=== PATIENT | female | born 1985 | race Hispanic/Latino ===

== ENCOUNTER 2024-06-05 13:20 | Day surgery (SDC) | payer OTHER ==
[2024-06-05 13:48] VITALS: BMI 24.7
[2024-06-05] MEDS ORDERED: hydrALAZINE 20 MG/ML VIAL SLOW IVP PRN (14:14)
[2024-06-05] MEDS: Lactated Ringer's 1,000 ML IV SCH (14:45)
[2024-06-05 15:40] LABS: #Basophils 0.03 10x3/uL (0.0-0.2); #Eosinophils 0.04 10x3/uL (0.0-0.5); #Neutrophils 7.89 10x3/uL (1.5-8.4); %Basophils 0.3 % (0.0-2.0); %Eosinophils 0.4 % (0.0-6.0); %Lymphocytes 14.2 % (18.0-47.0); %Neutrophils 78.3 % (40.0-75.0); Hematocrit 39.5 % (34.9-44.5); Hemoglobin 13.2 g/dL (12.0-15.5); Mean Corpuscular HGB CONC 33.4 g/dL (32.0-36.0); Mean Corpuscular Hemoglobin 28.9 pg (27.0-33.0); Mean Corpuscular Volume 86.6 fL (81.6-98.3); Mean Platelet Volume 9.6 fL (7.4-10.4); Platelet Count 323 10x3/uL (150-450); RBC Distribution Width 14.4 % (11.5-14.5); Red Blood Cell (RBC) Count 4.56 10x6/uL (3.90-5.03); White Blood Cell (WBC) Count 10.1 10x3/uL (3.5-10.5)
[2024-06-05 16:00] LABS: ALT (SGPT) 30 U/L (8-55); AST (SGOT) 40 U/L (5-34); Albumin 2.7 g/dL (3.5-5.0); Alkaline Phosphatase 106 U/L (40-110); Anion Gap 14 mmol/L (10-20); BUN (Urea Nitrogen) Less than 4 mg/dL (7.0-18.7); Bilirubin, Total 0.3 mg/dL (0.2-1.2); Calc. Creatinine Clearance 170 mL/min (70-130); Calcium 8.9 mg/dL (7.8-10.44); Carbon Dioxide 20 mmol/L (22-29); Chloride 109 mmol/L (98-107); Estimated GFR 121; Globulin 3.5 g/dL (2.4-3.5); Glucose 75 mg/dL (70-105); Protein, Total 6.2 g/dL (6.0-8.3); Sodium 140 mmol/L (136-145)
[2024-06-05 16:06] LABS: Potassium 2.6 mmol/L (3.5-5.1)
[2024-06-05 16:20] LABS: Influenza A by NAA Not Detected (NotDetected); Influenza B by NAA Not Detected (NotDetected); RSV by NAA Not Detected (NotDetected); SARS-CoV-2 NAA Rapid Test Not Detected (NotDetected)
[2024-06-05] MEDS: Potassium Chloride 20 MEQ TAB PO SCH (17:03)
== END 2024-06-05 17:25 | disposition home or self-care (01) ==
LOC: CSHLD/OP 13:20
PROVIDERS: ATTEND Family Medicine
DX: O99.283 Endocrine, nutritional and metabolic diseases complicating pregnancy, third trimester (principal); E87.6 Hypokalemia; O47.03 False labor before 37 completed weeks of gestation, third trimester; O09.43 Supervision of pregnancy with grand multiparity, third trimester; O09.523 Supervision of elderly multigravida, third trimester; Z79.899 Other long term (current) drug therapy; Z79.82 Long term (current) use of aspirin; Z3A.32 32 weeks gestation of pregnancy
CPT/HCPCS: 0241U; 80053; 85025; 96360; 99283

== ENCOUNTER 2024-07-23 05:30 | Inpatient (IN) | payer MEDICAID, OTHER ==
[2024-07-23 05:56] VITALS: BMI 29.2
[2024-07-23] MEDS ORDERED: Misoprostol 200 MCG TAB PR PRN (07:47)
[2024-07-23] MEDS ORDERED: Carboprost 250 MCG/ML AMP IM PRN (07:47)
[2024-07-23] MEDS ORDERED: Lidocaine 1% (PF) 30 ML VIAL SC PRN (07:47)
[2024-07-23] MEDS ORDERED: Methylergonovine 0.2 MG/ML VIAL IM PRN (07:47)
[2024-07-23] MEDS ORDERED: fentaNYL 50 mcg/mL 1 mL Vial SLOW IVP PRN (07:47)
[2024-07-23] MEDS ORDERED: Promethazine HCl 25 MG/ML VIAL IM PRN (07:47)
[2024-07-23] MEDS ORDERED: Ondansetron PF 4 MG/2 ML Vial IVP PRN ×2 (07:47→16:47)
[2024-07-23] MEDS ORDERED: Acetaminophen 500 MG TAB PO PRN (07:47)
[2024-07-23] MEDS ORDERED: Diphenoxylate HCl/Atropine Tablet PO PRN (07:47)
[2024-07-23] MEDS ORDERED: Tranexamic Acid 1,000 MG/10 ML VIAL IVP PRN (07:47)
[2024-07-23] MEDS ORDERED: HYDROcodone/Acetaminophen 5/325 mg Tablet PO PRN ×2 (07:47→16:47)
[2024-07-23] MEDS ORDERED: hydrALAZINE 20 MG/ML VIAL SLOW IVP PRN ×2 (07:47→16:47)
[2024-07-23] MEDS ORDERED: Oxytocin 30 units/NS 500 ML 500 ML IV SCH ×3 (08:00)
[2024-07-23] MEDS ORDERED: Lactated Ringer's 1,000 ML IV SCH (08:00)
[2024-07-23 09:03] LABS: Glucose 74 mg/dL (70-105)
[2024-07-23 09:03] LABS: Hemoglobin 12.6 g/dL (12.0-15.5); Mean Corpuscular HGB CONC 33.2 g/dL (32.0-36.0); Mean Corpuscular Hemoglobin 29.1 pg (27.0-33.0); Mean Corpuscular Volume 87.8 fL (81.6-98.3); Mean Platelet Volume 10.9 fL (7.4-10.4); Platelet Count 264 10x3/uL (150-450); RBC Distribution Width 15.1 % (11.5-14.5); Red Blood Cell (RBC) Count 4.33 10x6/uL (3.90-5.03); White Blood Cell (WBC) Count 9.77 10x3/uL (3.5-10.5)
[2024-07-23 09:37] LABS: Syphilis Antibody Nonreactive (Nonreactive); Syphilis Antibody Index 0.13 S/CO (<1.00 Non-Reactive)
[2024-07-23 09:38] LABS: HBsAg Index 0.22 S/CO (0-0.99); Hep B Surf Ag - L&D Non-Reactive S/CO (NonReactive)
[2024-07-23] MEDS: Ibuprofen 800 MG TAB PO PRN (15:09)
[2024-07-23] MEDS ORDERED: Benzocaine-Menthol 82.5 ML CAN TOP PRN (16:47)
[2024-07-23] MEDS ORDERED: Lanolin Ointment 7 GM TUBE TOP PRN (16:47)
[2024-07-23] MEDS ORDERED: Bisacodyl 10 MG SUPP PR PRN (16:47)
[2024-07-23] MEDS ORDERED: Milk Of Magnesia 30 ML UDCUP PO PRN (16:47)
[2024-07-23] MEDS: Ferrous Sulfate 325 MG TAB PO SCH (16:59)
[2024-07-23] MEDS: Ibuprofen 800 MG TAB PO SCH (21:20)
[2024-07-23] MEDS: Docusate 100 MG CAP PO SCH (21:20)
[2024-07-24 07:43] VITALS: BP 108/69; TEMP 98.4
[2024-07-24] MEDS: Boostrix 0.5 ML (Tdap) VIAL (>/=7 yrs of age) IM ONE (08:10)
[2024-07-24] MEDS: Prenatal Vitamin 1 TAB PO SCH (08:46)
== END 2024-07-24 18:00 | disposition home or self-care (01) | DRG 807 ==
LOC: CSHLD 05:30 → CSHPP 15:30
PROVIDERS: ADMIT Family Medicine; ATTEND Family Medicine
PROC: 10E0XZZ Delivery of Products of Conception, External Approach (ICD-10-PCS; principal; 2024-07-23)
PROC: 10907ZC Drainage of Amniotic Fluid, Therapeutic from Products of Conception, Via Natural or Artificial Opening (ICD-10-PCS; 2024-07-23)
DX: O24.420 Gestational diabetes mellitus in childbirth, diet controlled (principal); Z37.0 Single live birth; Z3A.39 39 weeks gestation of pregnancy; O09.523 Supervision of elderly multigravida, third trimester
CPT/HCPCS: 36415; 82947; 85027; 86780; 86850; 86900; 86901; 87340